=== PATIENT | female | born 1950 | race Caucasian/White ===

== ENCOUNTER → 2018-03-04 | Outpatient (REF) | payer MEDICARE ==
[~2018-03-04] MED LIST: ASPI-1471 PO; ATEN-1 PO; BUPR200T34 PO; CITA-141 PO; FOLI20CA2 PO; FURO20TA19 PO; INSU300I3 SC; LEVO75TA73 PO; LISI20TA29 PO; METF-407 PO; METF-450 PO; METH25VI IM; POTA CHLORIDE PO; POTA20TA94 PO; PRE5 PO; [UNRECOGNIZED DRUG - CODE] PO
== END ==
LOC: ZZSENDIN 12:00
PROVIDERS: ATTEND Family Medicine
DX: D03.61 Melanoma in situ of right upper limb, including shoulder (principal)
CPT/HCPCS: 88305

== ENCOUNTER 2018-03-15 05:42 | Emergency (ER) | payer MEDICARE ==
[~2018-03-15 05:42] MED LIST changes: -ASPI-1471 PO; -BUPR200T34 PO; -FURO20TA19 PO; -INSU300I3 SC; -METF-407 PO; -METF-450 PO; -POTA CHLORIDE PO; -POTA20TA94 PO; -[UNRECOGNIZED DRUG - CODE] PO
--- NOTE | 2018-03-15 05:59 | ER Report ---
History and Physical Time Seen By MD: 05:59 ([facility] HPI/ROS CHIEF COMPLAINT: fall with hypoglycemia HISTORY OF PRESENT ILLNESS: This is a 67 year old female. She has fallen yesterday in the morning and then fell again this morning. Her daughter heard her fall and then she and grandson helped her up. She was found to have a blood sugar of 55 and was confused. After drinking some juice, she started to make more sense. She has ecchymosis around the left eye from yesterday. She has poor memory and does not remember what she ate yesterday. She has had poor appetite. She has a new diagnosis of diabetes. Currently on Metformin 500mg twice a day, increased from once a day about a week ago. She has had diarrhea and upset stomach at times with nausea, as well the poor appetite. Seems like this is worse with the metformin increase. She also takes Glargine insulin as well, was 30units at bedtime, and increased to 32 units a few days ago. No fevers or chills. Has some sinus congestion. No problems breathing. No chest pain or palpitations. No trouble with urination, now urinating less with blood sugars lower. No injuries noted with fall this morning. (CARLOSNATHALIE REBOLLAR MD) Allergies: Coded Allergies: No Known Drug Allergies (Unverified , 10/23/16) Home Meds Active Scripts Metformin Hcl (GLUCOPHAGE XR) 500 Mg Tab.er.24h, 1 TAB PO QDAY, #30 TAB 0 Refill s Prov:ELIZABETH THOMAS MD 03/15/18 Reported Medications Furosemide (LASIX) 20 Mg Tablet, 1 TAB PO DAILY, TAB 03/15/18 Sennosides (Natural Laxative) 8.6 Mg Tablet, 8.6 MG PO PRN 03/15/18 Aspirin (ASPIR 81) 81 Mg Tablet.dr, 81 MG PO QDAY, TAB 03/15/18 Potassium Chloride (POTASSIUM CHLORIDE) 20 Meq Tab.er.prt, 20 MEQ PO QDAY 03/15/18 Bupropion HCl (Bupropion HCl ER) 200 Mg Tablet.er, 150 MG PO BID 03/15/18 Metformin Hcl (METFORMIN HCL) 500 Mg Tablet, 1 TAB PO BID, TAB 03/15/18 [pota chloride er] No Conflict Check, 10 MEQ PO DAILY 03/15/18 Insulin Glargine,Hum.rec.anlog (Richie Sosa Solostar) 300 Unit/Ml (3 Ml) Insuln .pen, 32 SC HS 03/15/18 Methotrexate Sodium/Pf (METHOTREXATE 1 GM/40 ML VIAL) 25 Mg/1 Ml Vial, 25 MG IM weekly, VIAL 07/20/15 Prednisone 5 Mg Tab (PREDNISONE 5 MG TAB) Unknown Strength Tablet, 10 MG PO QDAY 07/20/15 Levothyroxine Sodium (LEVOTHYROXINE SODIUM) 75 Mcg Tablet, 175 MCG PO QDAY, TAB 07/20/15 Citalopram Hydrobromide (CITALOPRAM HBR) 40 Mg Tablet, PO QDAY, #5 TAB 07/20/15 Folic Acid (FOLIC ACID) 20 Mg Capsule, PO, CAPSULE 07/20/15 Lisinopril (LISINOPRIL) 20 Mg Tablet, 5 MG PO QDAY, TAB 07/20/15 Atenolol (ATENOLOL) 50 Mg Tablet, PO QDAY, TAB 07/20/15 Reviewed Nurses Notes: Yes (NATHALIE GONZALEZ MD) Hx Smoking: No Hx Substance Use Disorder: No Hx Alcohol Use: Yes (NATHALIE GONZALEZ MD) Constitutional Vital Sign - Last 24 Hours 03/15/18 03/15/18 03/15/18 03/15/18 05:48 06:30 06:31 06:35 Temp 97.9 Pulse 55 58 54 57 66 Resp 18 B/P (MAP) 104/73 84/65 (71) 78/59 (65) 93/68 (76) 84/65 (71) 78/59 (65) Pulse Ox 91 88 O2 Delivery Room Air 03/15/18 03/15/18 03/15/18 06:45 07:00 07:15 Pulse 58 56 54 B/P (MAP) 89/65 (73) 90/73 (79) Pulse Ox 91 94 91 (ELIZABETH THOMAS MD) Physical Exam General Appearance: The patient is alert. No acute distress. Non-toxic in appearance. Eyes: Pupils are equal, round. No pallor, injection or icterus. ENT: Mucous membranes are moist. Normal oral mucosa. Posterior oropharynx is normal. Neck: Supple and non tender. No lymphadenopathy. Respiratory: Breathing easily and unlabored. Lungs are clear to auscultation. Cardiovascular: Regular rate and rhythm. No murmurs, gallops or rubs. Normal capillary refill. No edema. Gastrointestinal: Abdomen is soft and non tender. Nondistended. Hyperactive bowel sounds. No costovertebral angle tenderness with percussion. Neurological: Alert and oriented x3. No focal neurologic deficits, but with some generalized weakness. Skin: Warm and dry. No rashes. Musculoskeletal: Extremities are nontender. Full range of motion. No tenderness in palpation of the cervical, thoracic and lumbar spine. DIFFERENTIAL DIAGNOSIS: After history and physical exam, differential diagnosis was considered for low blood sugar and falls this morning and yesterday. Will look at labs for infection, metabolic problems, cardiac problems, but this is most likely going to be a combination of effects of the metformin and GI s ymptoms, poor intake and the insulin. ([facility],NATHALIE May MD) Medical Decision Making Data Points Result Diagram: 03/15/18 0620 03/15/18 0620 Laboratory Hematology Test 03/15/18 06:20 03/15/18 06:52 Red Blood Count 5.03 M/uL (4.17-5.56) Mean Corpuscular Volume 98.8 fL (80.0-96.0) Mean Corpuscular Hemoglobin 32.9 pg (26.0-33.0) Mean Corpuscular Hemoglobin Concent 33.3 g/dL (32.0-36.0) Red Cell Distribution Width 14.8 % (11.5-14.5) Mean Platelet Volume 7.9 fL (7.2-11.1) Neutrophils (%) (Auto) 72.6 % (39.4-72.5) Lymphocytes (%) (Auto) 18.5 % (17.6-49.6) Monocytes (%) (Auto) 7.4 % (4.1-12.4) Eosinophils (%) (Auto) 1.1 % (0.4-6.7) Basophils (%) (Auto) 0.4 % (0.3-1.4) Nucleated RBC Relative Count (auto) 0.1 /100WBC Neutrophils # (Auto) 5.9 K/uL (2.0-7.4) Lymphocytes # (Auto) 1.5 K/uL (1.3-3.6) Monocytes # (Auto) 0.6 K/uL (0.3-1.0) Eosinophils # (Auto) 0.1 K/uL (0.0-0.5) Basophils # (Auto) 0.0 K/uL (0.0-0.1) Nucleated RBC Absolute Count (auto) 0.01 K/uL Sodium Level 141 mmol/L (137-145) Potassium Level 3.4 mmol/L (3.5-5.0) Chloride Level 106 mmol/L (98-107) Carbon Dioxide Level 25 mmol/L (22-31) Blood Urea Nitrogen 12 mg/dl (7-18) Creatinine 0.60 mg/dl (0.52-1.04) Glomerular Filtration Rate Calc > 60.0 Random Glucose 53 mg/dl (75-110) Calcium Level 9.0 mg/dl (8.4-10.2) Total Bilirubin 1.0 mg/dl (0.2-1.3) Aspartate Amino Transf (AST/SGOT) 36 U/L (0-35) Alanine Aminotransferase (ALT/SGPT) 30 U/L (0-56) Alkaline Phosphatase 87 U/L (0-126) Troponin I < 0.012 ng/ml Total Protein 6.6 g/dl (6.3-8.2) Albumin 3.6 g/dl (3.5-5.0) Urine Color Yellow Urine Clarity Clear Urine pH 5.0 pH (4.8-9.5) Urine Specific [place] 1.014 Urine Protein Negative mg/dL (NEGATIVE) Urine Glucose (UA) Negative mg/dL (NEGATIVE) Urine Ketones Negative mg/dL (NEGATIVE) Urine Blood Negative (NEGATIVE) Urine Nitrite Negative (NEGATIVE) Urine Bilirubin Negative (NEGATIVE) Urine Urobilinogen Negative mg/dL (0.2-1.9) Urine Leukocyte Esterase Negative (NEGATIVE) Urine RBC <1 /HPF (0-2/HPF) Urine WBC <1 /HPF (0-5/HPF) Urine Squamous Epithelial Cells None /LPF (NONE-FEW) Urine Bacteria Negative /HPF (NONE-FEW) Urine Mucus None /HPF (NONE-FEW) Chemistry Test 03/15/18 06:20 03/15/18 06:52 White Blood Count 8.1 k/uL (4.5-11.0) Red Blood Count 5.03 M/uL (4.17-5.56) Hemoglobin 16.5 g/dL (12.0-16.0) Hematocrit 49.7 % (34.0-47.0) Mean Corpuscular Volume 98.8 fL (80.0-96.0) Mean Corpuscular Hemoglobin 32.9 pg (26.0-33.0) Mean Corpuscular Hemoglobin Concent 33.3 g/dL (32.0-36.0) Red Cell Distribution Width 14.8 % (11.5-14.5) Platelet Count 259 K/uL (150-450) Mean Platelet Volume 7.9 fL (7.2-11.1) Neutrophils (%) (Auto) 72.6 % (39.4-72.5) Lymphocytes (%) (Auto) 18.5 % (17.6-49.6) Monocytes (%) (Auto) 7.4 % (4.1-12.4) Eosinophils (%) (Auto) 1.1 % (0.4-6.7) Basophils (%) (Auto) 0.4 % (0.3-1.4) Nucleated RBC Relative Count (auto) 0.1 /100WBC Neutrophils # (Auto) 5.9 K/uL (2.0-7.4) Lymphocytes # (Auto) 1.5 K/uL (1.3-3.6) Monocytes # (Auto) 0.6 K/uL (0.3-1.0) Eosinophils # (Auto) 0.1 K/uL (0.0-0.5) Basophils # (Auto) 0.0 K/uL (0.0-0.1) Nucleated RBC Absolute Count (auto) 0.01 K/uL Glomerular Filtration Rate Calc > 60.0 Calcium Level 9.0 mg/dl (8.4-10.2) Total Bilirubin 1.0 mg/dl (0.2-1.3) Aspartate Amino Transf (AST/SGOT) 36 U/L (0-35) Alanine Aminotransferase (ALT/SGPT) 30 U/L (0-56) Alkaline Phosphatase 87 U/L (0-126) Troponin I < 0.012 ng/ml Total Protein 6.6 g/dl (6.3-8.2) Albumin 3.6 g/dl (3.5-5.0) Urine Color Yellow Urine Clarity Clear Urine pH 5.0 pH (4.8-9.5) Urine Specific [place] 1.014 Urine Protein Negative mg/dL (NEGATIVE) Urine Glucose (UA) Negative mg/dL (NEGATIVE) Urine Ketones Negative mg/dL (NEGATIVE) Urine Blood Negative (NEGATIVE) Urine Nitrite Negative (NEGATIVE) Urine Bilirubin Negative (NEGATIVE) Urine Urobilinogen Negative mg/dL (0.2-1.9) Urine Leukocyte Esterase Negative (NEGATIVE) Urine RBC <1 /HPF (0-2/HPF) Urine WBC <1 /HPF (0-5/HPF) Urine Squamous Epithelial Cells None /LPF (NONE-FEW) Urine Bacteria Negative /HPF (NONE-FEW) Urine Mucus None /HPF (NONE-FEW) Urinalysis Test 03/15/18 06:52 Urine Color Yellow Urine Clarity Clear Urine pH 5.0 pH (4.8-9.5) Urine Specific [place] 1.014 Urine Protein Negative mg/dL (NEGATIVE) Urine Glucose (UA) Negative mg/dL (NEGATIVE) Urine Ketones Negative mg/dL (NEGATIVE) Urine Blood Negative (NEGATIVE) Urine Nitrite Negative (NEGATIVE) Urine Bilirubin Negative (NEGATIVE) Urine Urobilinogen Negative mg/dL (0.2-1.9) Urine Leukocyte Esterase Negative (NEGATIVE) Urine RBC <1 /HPF (0-2/HPF) Urine WBC <1 /HPF (0-5/HPF) Urine Squamous Epithelial Cells None /LPF (NONE-FEW) Urine Bacteria Negative /HPF (NONE-FEW) Urine Mucus None /HPF (NONE-FEW) (ELIZABETH THOMAS MD) EKG/Imaging EKG Interpretation 12 lead EKG: Rhythm: Sinus bradycardia, rate 56 [place]: Left axis deviation QRS: normal ST segments: Nonspecific changes, no ST elevation or depression noted (NATHALIE GONZALEZ MD) ED Course/Re-evaluation Clinical Indication for ER IV: Hydration, IV Access ED Course Orthostatic vital signs came back showing she is orthostatic, likely due to her poor oral intake recently. Liter of normal saline was ordered. (NATHALIE GONZALEZ MD) ED Course 03/15/2018 7:29:40 am plan at this time will be to have patient decrease her Lantus to 28 units will also change to long acting metformin. We'll have patient call her primary care provider today to arrange follow-up next week Decision to Disposition Date: Mar 15, 2018 Decision to Disposition Time: 08:19 (ELIZABETH THOMAS MD) Depart Departure Latest Vital Signs Vital Signs Date Time Temp Pulse Resp B/P (MAP) Pulse Ox O2 Delivery O2 Flow Rate FiO2 03/15/18 07:15 54 91 03/15/18 07:00 90/73 (79) 03/15/18 05:48 97.9 18 Room Air (ELIZABETH THOMAS MD) Impression: Primary Impression: Hypoglycemia Additional Impression: Dehydration Condition: Improved Disposition: HOME OR SELF-CARE Referrals: EUNICE SEWELL MD (PCP) New Scripts Metformin Hcl (GLUCOPHAGE XR) 500 Mg Tab.er.24h 1 TAB PO QDAY, #30 TAB 0 Refills Prov: ELIZABETH THOMAS MD 03/15/18 Patient Instructions: Hypoglycemia in a Person with Diabetes (ED) Additional Instructions: Decrease your Lantus to 28 units Discontinue your current metformin prescription and switch to the long-acting form of metformin and take as directed Call today to arrange close follow-up next week Problem Qualifiers NATHALIE GONZALEZ MD Mar 15, 2018 05:59 ELIZABETH THOMAS MD Mar 15, 2018 07:34
[2018-03-15] MEDS ORDERED: POTA CHLORIDE PO (06:10)
[2018-03-15] MEDS ORDERED: METF-450 PO (06:10)
[2018-03-15] MEDS ORDERED: INSU300I3 SC (06:10)
[2018-03-15] MEDS ORDERED: POTA20TA94 PO (06:10)
[2018-03-15] MEDS ORDERED: BUPR200T34 PO (06:10)
--- NOTE | 2018-03-15 06:30 | EKG ---
FACILITY: [facility] - [place] PATIENT NAME: RANJAN KENNEY : [id number] MR: [id number] V: [id number] EXAM DATE: ORDERING PHYSICIAN: NATHALIE GONZALEZ TECHNOLOGIST: DEVAN Test Reason : ALTERD MENTAL STATUS Blood Pressure : / mmHG Vent. Rate : 056 BPM Atrial Rate : 056 BPM P-R Int : 108 ms QRS Dur : 108 ms QT Int : 326 ms P-R-T Axes : 045 -35 117 degrees QTc Int : 314 ms Sinus bradycardia with short [place] Left axis deviation Nonspecific ST and T wave abnormality Abnormal ECG No previous ECGs available Confirmed by KANU CESAR ([id number]) on 03/15/2018 10:14:10 AM Referred By: Confirmed By:KANU CESAR
[2018-03-15] MEDS ORDERED: FURO20TA19 PO (06:34)
[2018-03-15] MEDS ORDERED: ASPI-1471 PO (06:34)
[2018-03-15] MEDS ORDERED: [UNRECOGNIZED DRUG - CODE] PO (06:34)
[2018-03-15 06:37] LABS: PLATELET COUNT, AUTOMATED 259 K/uL (150-450)
[2018-03-15] MEDS ORDERED: NS(*) 0.9% 1000 ML BAG 1,000 ML IV ONE (06:40)
[2018-03-15] MEDS ORDERED: METF-407 PO (07:33)
[2018-03-15 08:00] VITALS: BP 103/71
== END 2018-03-15 08:31 | disposition home or self-care (01) ==
LOC: ER 06:31
DX: E11.649 Type 2 diabetes mellitus with hypoglycemia without coma (principal); E86.0 Dehydration
CPT/HCPCS: 36416; 81001; 82948; 84484; 85025; 93005; 96360; 96361; 99283; A4353; J7030; 82040; 82247; 82310; 82374; 82435; 82565; 82947; 84075; 84132; 84155; 84295; 84450; 84460; 84520

== ENCOUNTER → 2018-06-12 | Outpatient (CLI) | payer MEDICARE ==
[~2018-06-12] MED LIST changes: +ASPI-1471 PO; +BUPR200T34 PO; +FURO20TA19 PO; +INSU300I3 SC; +METF-407 PO; +METF-450 PO; +POTA CHLORIDE PO; +POTA20TA94 PO; +[UNRECOGNIZED DRUG - CODE] PO
--- NOTE | 2018-06-12 16:24 | RADIOLOGY IMAGING REPORT ---
FACILITY: [facility] - [place] PATIENT NAME: Tawana Vines : 1950 MR: [id number] V: [id number] EXAM DATE: ORDERING PHYSICIAN: ANGÉLICA FRANCES TECHNOLOGIST: Location: [facility] Patient: Tawana Vines : 1950 Visit/Account:[id number] Date of Sevice: 06/12/2018 ADDENDUM #1 ADDENDUM: The findings were discussed with the ordering physician at 4:24 PM. Report Dictated By: Rajat Lezama MD at 06/12/2018 4:22 PM Report E-Signed By: Rajat Lezama MD at 06/12/2018 4:24 PM ORIGINAL REPORT 3 views lumbar spine, 3 views of the sacrum and coccyx Indication: Lower back pain, sciatica on the left. Fall one month ago. Comparison: None available. Findings: Bones appear diffusely osteopenic. Frontal projection demonstrates levoscoliotic curvature lumbar spine. Mild to moderate multilevel spo ndylosis is noted with disc space narrowing and endplate spurring, most notable L2-L3 and L5-S1. Mode rate facet arthrosis is seen L4-L5 and L5-S1. There is a anterior wedging compression deformity of the L1 vertebra. Compared to the adjacent verteb ra, maximum loss of height is approximately 45%. Subtle compression of the L5 vertebra with approximately 24% loss of height as compared to the adjace nt vertebral body. 3 dedicated views of the sacrum and coccyx are submitted. Frontal projection demonstrates intact pubi c rami. Hips appear to align appropriately. SI joints are symmetric. Lateral view of the sacrum and coccyx reveals no fracture. IMPRESSION: 1. Osteopenia. 2. 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 Moderate lower lumbar facet arthrosis 3. Moderate compression deformity of the L1 vertebra with mild compression of the L5 vertebra indicat rodriguez of fractures of unknown chronicity. If further evaluation is needed of these fractures, MRI is kim ggested 4. No acute osseous finding involving the sacrum or coccyx. Report Dictated By: Rajat Lezama MD at 06/12/2018 4:11 PM Report E-Signed By: Rajat Lezama MD at 06/12/2018 4:19 PM WSN:[id number]
--- NOTE | 2018-06-12 16:24 | RADIOLOGY IMAGING REPORT ---
FACILITY: [facility] - [place] PATIENT NAME: Tawana Vines : 1950 MR: [id number] V: [id number] EXAM DATE: ORDERING PHYSICIAN: ANGÉLICA FRANCES TECHNOLOGIST: Location: [facility] Patient: Tawana Vines : 1950 Visit/Account:[id number] Date of Sevice: 06/12/2018 ADDENDUM #1 ADDENDUM: The findings were discussed with the ordering physician at 4:24 PM. Report Dictated By: Rajat Lezama MD at 06/12/2018 4:22 PM Report E-Signed By: Rajat Lezama MD at 06/12/2018 4:24 PM ORIGINAL REPORT 3 views lumbar spine, 3 views of the sacrum and coccyx Indication: Lower back pain, sciatica on the left. Fall one month ago. Comparison: None available. Findings: Bones appear diffusely osteopenic. Frontal projection demonstrates levoscoliotic curvature lumbar spine. Mild to moderate multilevel spo ndylosis is noted with disc space narrowing and endplate spurring, most notable L2-L3 and L5-S1. Mode rate facet arthrosis is seen L4-L5 and L5-S1. There is a anterior wedging compression deformity of the L1 vertebra. Compared to the adjacent verteb ra, maximum loss of height is approximately 45%. Subtle compression of the L5 vertebra with approximately 24% loss of height as compared to the adjace nt vertebral body. 3 dedicated views of the sacrum and coccyx are submitted. Frontal projection demonstrates intact pubi c rami. Hips appear to align appropriately. SI joints are symmetric. Lateral view of the sacrum and coccyx reveals no fracture. IMPRESSION: 1. Osteopenia. 2. 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 Moderate lower lumbar facet arthrosis 3. Moderate compression deformity of the L1 vertebra with mild compression of the L5 vertebra indicat rodriguez of fractures of unknown chronicity. If further evaluation is needed of these fractures, MRI is kim ggested 4. No acute osseous finding involving the sacrum or coccyx. Report Dictated By: Rajat Lezama MD at 06/12/2018 4:11 PM Report E-Signed By: Rajat Lezama MD at 06/12/2018 4:19 PM WSN:[id number]
== END ==
LOC: RAD 15:40
PROVIDERS: ATTEND Family Medicine
DX: M85.88 Other specified disorders of bone density and structure, other site (principal); M47.896 Other spondylosis, lumbar region; M41.86 Other forms of scoliosis, lumbar region
CPT/HCPCS: 72100; 72220